=== PATIENT | female | born 1990 | race Two or more races ===

== ENCOUNTER → 2019-02-06 | Outpatient (CLI) | payer BC, OTHER ==
[2013-09-26 14:50] VITALS: BP 136/82
[~2019-02-06] MED LIST: FERR160T4 PO; FERR325T14 PO; HYDR-3164 PO; IBUP-1007 PO
--- NOTE | 2019-02-06 15:30 | RAD ---
EXAM: Obstetrics sonogram. HISTORY: Unsure dates. TECHNIQUE: Sonographic imaging of the pelvis was performed. COMPARISON: None. FINDINGS: There is a single intrauterine gestational sac and yolk sac with pole. The crown-rump length is 7 mm, corresponding with a gestational age of 6 weeks and 4 days and due date of 09/28/2019. There is normal heart rate of 147 bpm. The gestational sac is normal in configuration and location. The left ovary is obscured due to bowel gas. The right ovary is unremarkable. The uterus is normal in size. IMPRESSION: Single intrauterine fetus with an estimated gestational age of 6 weeks and 4 days and normal heart rate of 147 bpm. Electronically signed by: Lesa Bañuelos MD (02/06/2019 3:27 PM) [place] [id number]
== END | disposition home or self-care (01) ==
LOC: US 15:34
PROVIDERS: ATTEND Family Medicine
DX: Z34.91 Encounter for supervision of normal pregnancy, unspecified, first trimester (principal); Z3A.01 Less than 8 weeks gestation of pregnancy
CPT/HCPCS: 76801

== ENCOUNTER 2021-04-14 15:00 | Emergency (ER) | payer BC, MEDICAID ==
[~2021-04-14] VITALS: Ht 162.6 cm; Wt 95.7 kg
[2021-04-14 16:39] LABS: BILIRUBIN,URINE NEGATIVE (NEG); CLARITY,URINE CLEAR; COLOR,URINE YELLOW; NITRITE,URINE NEGATIVE (NEG); PROTEIN,URINE 30 mg/dL (NEG-TRACE); UROBILINOGEN,URINE 0.2 mg/dL (0.2 mg/dL)
[2021-04-14 16:45] LABS: HYALINE CASTS, URINE FEW /HPF
[2021-04-14 16:46] LABS: BACTERIA,URINE 0 /HPF (0-FEW)
[2021-04-14] MEDS: ONDANSETRON PF 4 MG/2 ML VIAL. IVP ONE (16:56)
[2021-04-14] MEDS: FAMOTIDINE 20 MG/2 ML VIAL IVP ONE (16:57)
[2021-04-14 17:06] LABS: BASO # 0.1 x10^3/uL (0.0-0.2); BASO % 1 % (0-3); EOS % 0 % (0-3); HEMATOCRIT 41.8 % (36.0-47.0); HEMOGLOBIN 13.9 g/dL (12.0-15.5); LYMPH # 1.3 x10^3/uL (1.0-4.8); LYMPH % 16 % (24-48); MEAN CORPUSCULAR HEMOGLOBIN 28 pg (25-35); MEAN CORPUSCULAR HGB CONC 33 g/dL (31-37); MEAN CORPUSCULAR VOLUME 84 fL (79-100); MONO # 0.4 x10^3/uL (0.0-1.1); MONO % 5 % (0-9); NEUT # 6.5 x10^3/uL (1.8-7.7); NEUT % 78 % (31-73); PLATELET COUNT 252 x10^3/uL (140-400); RED BLOOD COUNT 4.96 x10^6/uL (3.50-5.40); RED CELL DISTRIBUTION WIDTH 14.9 % (11.5-14.5); WHITE BLOOD COUNT 8.3 x10^3/uL (4.0-11.0)
[2021-04-14 17:25] LABS: CALCIUM 9.4 mg/dL (8.5-10.1); CREATININE 0.7 mg/dL (0.6-1.0); GFR 99.6; POTASSIUM 4.4 mmol/L (3.5-5.1)
[2021-04-14 17:28] LABS: ALBUMIN 4.1 g/dL (3.4-5.0); ALBUMIN/GLOBULIN RATIO 0.9 (1.0-1.7); TOTAL BILIRUBIN 0.3 mg/dL (0.2-1.0); TOTAL PROTEIN 8.9 g/dL (6.4-8.2)
[2021-04-14] MEDS ORDERED: POLYETHYLENE GLYCOL 3350 17 GM PACKET. PO ONE (17:45)
--- NOTE | 2021-04-14 18:09 | PHYS DOC ---
Past Medical History Past Medical History: No Pertinent History Past Surgical History: Other Additional Past Surgical Histo: Shoulder surgery Smoking Status: Never Smoker Alcohol Use: None Drug Use: None General Adult EDM: Chief Complaint: NAUSEA/VOMITING/DIARRHEA HPI: HPI: Patient is a 30 year old female who presents with nausea and vomiting that began this morning around 10:00. Patient reports that she last ate [employer] around 1700 yesterday. When she woke today with abdominal pain and nausea, she thought maybe that she was hungry. Patient states that she went out to get food, but upon smelling the food, vomited. Since that time, she has vomited 2 additional times while in the car, once on the way home and once en route to the emergency department. She reports associated epigastric pain, diffuse paresthesias and lightheadedness that accompany her nausea. Patient typically poops 23 times per day, but has not had a bowel movement today. She states she only had one bowel movement yesterday. Patient is currently menstruating, but she states it is early. The first day of her most recent menstrual period before this one was 03/28/2021. She reports she is in a monogamous relationship with her and that they use condoms. She does not take hormonal control. Patient denies bloody emesis or stool, diarrhea, dysuria, hematuria. Review of Systems: Review of Systems: Constitutional: Denies fever, chills or generalized weakness Eyes: Denies change in visual acuity, visual field deficits or discharge HENT: Denies ear pain, nasal congestion or sore throat Respiratory: Denies cough or shortness of breath Cardiovascular: Denies chest pain, palpitations or edema GI: See HPI : Denies dysuria or hematuria Musculoskeletal: Denies back pain or joint pain Integument: Denies rash or other skin lesion Neurologic: See HPI Heart Score: C/O Chest Pain: No Current Medications: Current Medications Medications (Trade) Dose Ordered Sig/Amber Start Time Stop Time Status Last Admin Dose Admin Famotidine (Pepcid Vial) 20 mg 1X ONCE 04/14/21 16:45 04/14/21 16:46 DC 04/14/21 16:57 20 MG Ondansetron HCl (Zofran) 4 mg 1X ONCE 04/14/21 16:45 04/14/21 16:46 DC 04/14/21 16:56 4 MG Polyethylene Glycol (miraLAX PACKET) 34 gm 1X ONCE 04/14/21 17:45 04/14/21 17:46 DC Allergies: Allergies: Allergies Coded Allergies Type Severity Reaction Last Updated Verified No Known Drug Allergies 09/25/13 No Physical Exam: PE: Constitutional: Well developed, well nourished, no acute distress, non-toxic appearance. HEENT: Atraumatic, normocephalic, PERRL, EOMI, conjunctiva pink and moist, no discharge, external ears without deformity or discharge, nose without deformity or discharge. Cardiovascular: Heart rate regular rhythm, no murmur. Lungs & Thorax: Bilateral breath sounds clear to auscultation. Abdomen: Bowel sounds hypoactive in low abdomen, soft, low central abdominal tenderness, no masses, no pulsatile masses, no peritoneal signs, no McBurney's point tenderness, negative Rovsing sign, negative Lemus sign. Skin: Warm, dry, no erythema, no rash. Back: No tenderness, no CVA tenderness. Extremities: No tenderness, no cyanosis, no clubbing, ROM intact, no edema. Neurologic: Alert and oriented x4, no focal deficits noted. Current Patient Data: Labs: Laboratory Tests Test 04/14/21 16:10 04/14/21 16:18 04/14/21 16:52 Urine Collection Type Unknown Urine Color Yellow Urine Clarity Clear Urine pH 7.0 (<5.0-8.0) Urine Specific [place] >=1.030 (1.000-1.030) Urine Protein 30 mg/dL (NEG-TRACE) Urine Glucose (UA) Negative mg/dL (NEG) Urine Ketones (Stick) 15 mg/dL (NEG) Urine Blood Small (NEG) Urine Nitrite Negative (NEG) Urine Bilirubin Negative (NEG) Urine Urobilinogen Dipstick 0.2 mg/dL (0.2 mg/dL) Urine Leukocyte Esterase Negative (NEG) Urine RBC 11-20 /HPF (0-2) Urine WBC 1-4 /HPF (0-4) Urine Squamous Epithelial Cells Mod /LPF Urine Bacteria 0 /HPF (0-FEW) Urine Hyaline Casts Few /HPF Urine Mucus Marked /LPF POC Urine HCG, Qualitative Hcg negative (Negative) White Blood Count 8.3 x10^3/uL (4.0-11.0) Red Blood Count 4.96 x10^6/uL (3.50-5.40) Hemoglobin 13.9 g/dL (12.0-15.5) Hematocrit 41.8 % (36.0-47.0) Mean Corpuscular Volume 84 fL (79-100) Mean Corpuscular Hemoglobin 28 pg (25-35) Mean Corpuscular Hemoglobin Concent 33 g/dL (31-37) Red Cell Distribution Width 14.9 % (11.5-14.5) H Platelet Count 252 x10^3/uL (140-400) Neutrophils (%) (Auto) 78 % (31-73) H Lymphocytes (%) (Auto) 16 % (24-48) L Monocytes (%) (Auto) 5 % (0-9) Eosinophils (%) (Auto) 0 % (0-3) Basophils (%) (Auto) 1 % (0-3) Neutrophils # (Auto) 6.5 x10^3/uL (1.8-7.7) Lymphocytes # (Auto) 1.3 x10^3/uL (1.0-4.8) Monocytes # (Auto) 0.4 x10^3/uL (0.0-1.1) Eosinophils # (Auto) 0.0 x10^3/uL (0.0-0.7) Basophils # (Auto) 0.1 x10^3/uL (0.0-0.2) Sodium Level 140 mmol/L (136-145) Potassium Level 4.4 mmol/L (3.5-5.1) Chloride Level 102 mmol/L (98-107) Carbon Dioxide Level 32 mmol/L (21-32) Anion Gap 6 (6-14) Blood Urea Nitrogen 13 mg/dL (7-20) Creatinine 0.7 mg/dL (0.6-1.0) Estimated GFR (Cockcroft-Gault) 99.6 BUN/Creatinine Ratio 19 (6-20) Glucose Level 97 mg/dL (70-99) Calcium Level 9.4 mg/dL (8.5-10.1) Total Bilirubin 0.3 mg/dL (0.2-1.0) Aspartate Amino Transferase (AST) 31 U/L (15-37) Alanine Aminotransferase (ALT) 64 U/L (14-59) H Alkaline Phosphatase 86 U/L (46-116) Total Protein 8.9 g/dL (6.4-8.2) H Albumin 4.1 g/dL (3.4-5.0) Albumin/Globulin Ratio 0.9 (1.0-1.7) L Lipase 92 U/L (73-393) Laboratory Tests 04/14/21 16:52 Laboratory Tests 04/14/21 16:52 Vital Signs: Vital Signs Date Time Temp Pulse Resp B/P (MAP) Pulse Ox O2 Delivery O2 Flow Rate FiO2 04/14/21 16:59 97.8 59 19 107/60 (76) 99 Room Air 97.8 Radiology/Procedures: Radiology/Procedures: PROCEDURE: KUB Supine abdomen. HISTORY: No bowel movement yesterday Supine views were taken of the abdomen. There is moderate stool in the left colon and rectum. There is no small bowel obstruction. Patient's had a cholecystectomy. There are no other acute findings. IMPRESSION: 1. Moderate stool in the colon and rectum. 2. No bowel obstruction noted. Electronically signed by: Francisco Moreland MD (04/14/2021 6:12 PM) [facility] Course & Med Decision Making: Course & Med Decision Making Pertinent Labs and Imaging studies reviewed. (See chart for details) Patient is an otherwise healthy 30-year-old female currently on her period who presents with abdominal pain, nausea, vomiting and constipation. Work-up today will include labs, urinalysis, KUB. Patient provided with IV Zofran and Pepcid. On reevaluation, patient states that her epigastric pain and nausea are much improved. She will be given MiraLAX p.o. to aid with constipation. She is advised she may take additional doses or use [id number] suppositories/enemas if symptoms not improve. Patient given return precautions. Patient understands and is agreeable to discharge plan. Dragon Disclaimer: Dragon Disclaimer: This electronic medical record was generated, in whole or in part, using a voice recognition dictation system. Departure Departure Impression: Primary Impression: Constipation Qualified Codes: K59.00 - Constipation, unspecified Additional Impression: Epigastric pain Disposition: HOME / SELF CARE / HOMELESS Condition: STABLE Referrals: BUD MACEDO MD (PCP) Patient Instructions: Constipation, Adult, [id number] Additional Instructions: EMERGENCY DEPARTMENT GENERAL DISCHARGE INSTRUCTIONS Thank you for coming to [facility] Emergency Department (ED) today and trusting us with you care. We trust that you had a positive experience in our Emergency Department. If you wish to speak to the department management, you may call the Director at . YOUR FOLLOW UP INSTRUCTIONS ARE FOLLOWS: 1. Do you have a private doctor? If you do not have a private doctor, please ask for a resource list of physicians or clinics that may be able to assist you with follow up care. 2. The emergency physician has interpreted your x-rays. The X-Ray specialist also reviewed them. 3. A lab test or culture has been done, your results will be reviewed and you will be notified if you need a change in treatment. 4. You may take additional doses of MiraLax if you do not pass a bowel movement tonight. Other over the counter options are available in pill, suppository or enema form. Use per label instructions. ADDITIONAL INSTRUCTIONS AND INFORMATION: 1. Your care today has been supervised by a physician who is specially trained in emergency care. Many problems require more than one evaluation for a complete diagnosis and treatment. We recommend that you schedule your follow up appointment as recommended to ensure complete treatment of you illness or injury. If you are unable to obtain follow up care and continue to have a problem, or if your condition worsens, we recommend that you return to the ED. 2. We are not able to safely determine your condition over the phone nor are we able to give sound medical advice over the phone. For these safety reasons, if you call for medical advice we will ask you to come to the ED for further evaluation. 3. If you have any questions regarding these discharge instructions please call the ED at . SAFETY INFORMATION: In the interest of safety, wellness, and injury prevention; we encourage you to wear your seat belt, if you smoke; quite smoking, and we encourage family to use a protective helmet for bicycling and other sporting events that present an increased risk for head injury. IF YOUR SYMPTOMS WORSEN OR NEW SYMPTOMS DEVELOP, OR YOU HAVE CONCERNS ABOUT YOUR CONDITION; OR IF YOUR CONDITION WORSENS WHILE YOU ARE WAITING FOR YOUR FOLLOW UP APPOINTMENT; EITHER CONTACT YOUR PRIMARY CARE DOCTOR, THE PHYSICIAN WHOSE NAME AND NUMBER YOU WERE GIVEN, OR RETURN TO THE ED IMMEDIATELY. MIGEL SINCLAIR Apr 14, 2021 18:08
--- NOTE | 2021-04-14 18:14 | RAD ---
Supine abdomen. HISTORY: No bowel movement yesterday Supine views were taken of the abdomen. There is moderate stool in the left colon and rectum. There i s no small bowel obstruction. Patient's had a cholecystectomy. There are no other acute findings. IMPRESSION: 1. Moderate stool in the colon and rectum. 2. No bowel obstruction noted. Electronically signed by: Francisco Moreland MD (04/14/2021 6:12 PM) [facility]
[2021-04-14 18:51] VITALS: BP 128/67
== END 2021-04-14 19:15 | disposition home or self-care (01) ==
LOC: ER 15:00
DX: K59.00 Constipation, unspecified (principal); R11.2 Nausea with vomiting, unspecified
CPT/HCPCS: 36415; 74018; 80053; 81001; 81025; 82010; 83690; 85025; 96374; 96375; 99285; J2405; J3490